=== PATIENT | female | born 1990 | race Caucasian/White ===

== ENCOUNTER 2017-05-05 05:02 | Emergency (ER) | payer OTHER ==
[2017-05-05 05:26] VITALS: BMI 49.9
--- NOTE | 2017-05-05 07:37 | PDOC ---
History of Present Illness - General Chief Complaint: Pain Stated Complaint: PAIN TO LEFT CALF Time Seen by Provider: 05/05/17 05:20 - History of Present Illness Initial Comments: 05/05/17 07:29 The patient is 26 year old female with no significant past medical history who presents to the ED complaining of left calf pain and swelling. The patient states she was walking several hours ago when she felt tightness in her left calf followed by a popping sensation. She subsequently developed left calf pain and swelling. Pain is worse with bearing weight and patient reports difficulty walking. She also reports some mild swelling in her left foot. Denies recent immobilization. No OCP use. She denies any chest pain, SOB, or diaphoresis. She denies recent antibiotic use. Past History - Past Medical History Allergies/Adverse Reactions: Allergies Allergy/AdvReac Type Severity Reaction Status Date / Time No Known Drug Allergies Allergy Verified 05/05/17 05:24 NUTS Allergy Swelling Uncoded 05/05/17 05:24 Home Medications: Ambulatory Orders No Home Medications 0 dose .ROUTE UTDICT 04/04/13 Asthma: No Cancer: No Cardiac Disorders: No COPD: No Diabetes: No HTN: No Seizures: No Thyroid Disease: No - Reproductive History (#): 1 Para: 0 Therapeutic (s) & number: No Spontaneous : 0 - Immunization History Immunization Up to Date: Yes - Suicide/Smoking/Psychosocial Hx Smoking Status: No Smoking History: Never smoked Have you smoked in the past 12 months: No Number of Cigarettes Smoked Daily: 0 Information on smoking cessation initiated: No Hx Alcohol Use: No Drug/Substance Use Hx: No Hx Substance Use Treatment: No Review of Systems - Review of Systems Comments:: 05/05/17 07:32 "GENERAL/CONSTITUTIONAL: No fever or chills. No weakness. HEAD, EYES, EARS, NOSE AND THROAT: No change in vision. No ear pain or discharge. No sore throat. CARDIOVASCULAR: No chest pain or shortness of breath. RESPIRATORY: No cough, wheezing, or hemoptysis. GASTROINTESTINAL: No nausea, vomiting, diarrhea or constipation. GENITOURINARY: No dysuria, frequency, or change in urination. MUSCULOSKELETAL: +Left calf pain and swelling. No other joint or muscle swelling or pain. No neck or back pain. SKIN: No rash NEUROLOGIC: No headache, vertigo, loss of consciousness, or change in strength/ sensation. ENDOCRINE: No increased thirst. No abnormal weight change. HEMATOLOGIC/LYMPHATIC: No anemia, easy bleeding, or history of blood clots. ALLERGIC/IMMUNOLOGIC: No hives or skin allergy. " *Physical Exam - Vital Signs Last Vital Signs Temp Pulse Resp BP Pulse Ox 98.3 F 84 18 134/67 97 05/05/17 07:28 05/05/17 07:28 05/05/17 07:28 05/05/17 07:28 05/05/17 07:28 - Physical Exam Comments: 05/05/17 07:37 "GENERAL: Awake, alert, and fully oriented, in no acute distress HEAD: No signs of trauma EYES: PERRLA, EOMI, sclera anicteric, conjunctiva clear ENT: Auricles normal inspection, hearing grossly normal, nares patent, oropharynx clear without exudates. Moist mucosa NECK: Nontender, no stepoffs, Normal ROM, supple, no lymphadenopathy, JVD, or masses LUNGS: Breath sounds equal, clear to auscultation bilaterally. No wheezes, and no crackles HEART: Regular rate and rhythm, normal S1 and S2, no murmurs, rubs or gallops ABDOMEN: Soft, nontender, normoactive bowel sounds. No guarding, no rebound. No masses EXTREMITIES: LLE with slightly diminished strength on plantarflexion of foot, NORMAL leonard test NEUROLOGICAL: Cranial nerves II through XII intact. 5/5 strength and sensation in all extremities, Normal speech, normal gait SKIN: Warm, Dry, normal turgor, no rashes or lesions noted. " ED Treatment Course - ADDITIONAL ORDERS Additional order review: Laboratory Results 05/05/17 06:07 Urine HCG, Qual Negative - RADIOLOGY Radiology Studies Ordered: Category Date Time Status ANKLE-LEFT [RAD] Stat Radiology 05/05/17 05:34 Ordered DUPLEX VASCUL US-1 LEG [US] Stat Ultrasound 05/05/17 05:33 Ordered SOFT TISSUE EXTREMITY US [US] Stat Ultrasound 05/05/17 05:33 Ordered Medical Decision Making - Medical Decision Making 05/05/17 07:38 26 F with L calf pain and swelling. Exam with slightly diminished strength on plantarflexion of foot. Possible partial achilles tear. Complete tear unlikely as pt with some preserved strength and normal leonard test. Will r/o acute fx and DVT given swelling and pain. - L ankle XR - LLE US - Ortho f/u *DC/Admit/Observation/Transfer Diagnosis at time of Disposition: Achilles rupture - Discharge Dispostion Disposition: HOME Condition at time of disposition: Stable - Referrals Referrals: Dusty Perera [Primary Care Provider] - Luisito Higuera MD [Staff Physician] - - Patient Instructions Additional Instructions: Call Dr. Higuera office tomorrow for appointment within one week with the orthopedic doctor. Return to the emergency department if you have any new, worsening or concerning symptoms. - Post Discharge Activity - Attestations Physician Attestion: 05/07/17 12:45 I, Dr. Luisito Torrez MD, attest that this document has been prepared under my direction and personally reviewed by me in its entirety. I further attest, that it accurately reflects all work, treatment, procedures and medical decision -making performed by me.
[2017-05-05 11:25] VITALS: BP 123/75; PULSE 66; TEMP 99.3
--- NOTE | 2017-05-05 12:32 | PDOC ---
*Physical Exam - Vital Signs Last Vital Signs Temp Pulse Resp BP Pulse Ox 99.3 F 66 18 123/75 98 05/05/17 11:24 05/05/17 11:24 05/05/17 11:24 05/05/17 11:24 05/05/17 11:24 ED Treatment Course - ADDITIONAL ORDERS Additional order review: Laboratory Results 05/05/17 06:07 Urine HCG, Qual Negative - RADIOLOGY Radiology Studies Ordered: Category Date Time Status LEG TIB/FIB-LEFT [RAD] Stat Radiology 05/05/17 08:13 Completed Medical Decision Making - Medical Decision Making 05/05/17 12:26 Imaging consistent with Achilles tendon rupture. Repeat exam with swelling in achillis tendon area. 2+ DP pulse palpable. Patient placed in a posterior splint in equinus position and given crutches for NWB. Patient is to follow-up with orthopedics as soon as possible in the next week. I discussed the physical exam findings, ancillary test results and final diagnoses with the patient. I answered all of the patient's questions. The patient was satisfied with the care received and felt comfortable with the discharge plan and treatment plan. The patient will call their primary care physician within 24 hours to arrange follow-up and will return to the Emergency Department with any new, persistent or worsening symptoms. *DC/Admit/Observation/Transfer Diagnosis at time of Disposition: Achilles rupture - Discharge Dispostion Disposition: HOME Condition at time of disposition: Stable Admit: No - Referrals Referrals: Dusty Perera [Primary Care Provider] - Luisito Higuera MD [Staff Physician] - - Patient Instructions Additional Instructions: Call Dr. Higuera office tomorrow for appointment within one week with the orthopedic doctor. Return to the emergency department if you have any new, worsening or concerning symptoms. - Post Discharge Activity
== END 2017-05-05 12:45 | disposition home or self-care (01) ==
LOC: JER 05:02
PROC: 2W3RX1Z Immobilization of Left Lower Leg using Splint (ICD-10-PCS; principal; 2017-05-05)
DX: S86.012A Strain of left Achilles tendon, initial encounter (principal); Y93.01 Activity, walking, marching and hiking; Y93.89 Activity, other specified; Y92.89 Other specified places as the place of occurrence of the external cause; Y99.8 Other external cause status
CPT/HCPCS: 29515; 73590-TC-LT; 73610-TC-LT; 76882; 84703; 93971-TC; 99283-25

== ENCOUNTER 2020-08-26 07:08 | Emergency (ER) | payer OTHER ==
[2020-08-26 07:52] VITALS: TEMP 98.1; BMI 47.0
[2020-08-26 08:19] LABS: BASO % 0.5 % (0-2.0); EOS % 0.3 % (0-4.5); HEMATOCRIT 39.6 % (32.4-45.2); HEMOGLOBIN 13.4 GM/dL (10.7-15.3); MCH 28.3 pg (25.7-33.7); MEAN CELL VOLUME 83.2 fl (80-96); MEAN PLT VOLUME 10.2 fl (7.5-11.1); MONO % 7.7 % (3.8-10.2); NEUT % 77.5 % (42.8-82.8); PLATELET COUNT 197 K/MM3 (134-434); RBC 4.75 M/mm3 (3.60-5.2); RDW 14.8 % (11.6-15.6); WHITE BLOOD COUNT 7.9 K/mm3 (4.0-10.0)
[2020-08-26 08:33] LABS: URINE APPEARANCE TURBID; URINE COLOR RED
[2020-08-26 08:34] LABS: EPI CELLS 78.3 /uL (0-25.1); HYALINE CASTS 1.75 /uL (0-3.1); URINE RBC 11037.9 /uL (0-23.9); URINE WBC 50.2 /uL (0-25.8)
[2020-08-26 08:55] LABS: POTASSIUM 3.9 mmol/L (3.5-5.1)
[2020-08-26 08:57] LABS: ALBUMIN 3.9 g/dl (3.4-5.0); BLOOD UREA NITROGEN 8.6 mg/dL (7-18); CALCIUM 9.2 mg/dL (8.5-10.1)
[2020-08-26 09:00] LABS: CREATININE 0.8 mg/dL (0.55-1.3)
[2020-08-26 09:02] LABS: BILIRUBIN,TOTAL 0.4 mg/dL (0.2-1); TOT PROT 7.1 g/dl (6.4-8.2)
[2020-08-26 12:15] VITALS: BP 114/58; PULSE 62
== END 2020-08-26 12:20 | disposition home or self-care (01) ==
LOC: JER 07:08
DX: O26.851 Spotting complicating pregnancy, first trimester (principal); Z3A.08 8 weeks gestation of pregnancy
CPT/HCPCS: 36415; 76817-TC; 80053; 81003; 84702; 85025; 86850; 86900; 86901; 87086; 87186; 87491; 87591; 99284-25

== ENCOUNTER 2020-08-28 08:32 | Emergency (ER) | payer OTHER ==
[2020-08-28 08:38] VITALS: BP 109/49; PULSE 56; TEMP 98; BMI 47.0
== END 2020-08-28 10:50 | disposition home or self-care (01) ==
LOC: JER 08:32
DX: O26.851 Spotting complicating pregnancy, first trimester (principal); Z3A.01 Less than 8 weeks gestation of pregnancy
CPT/HCPCS: 36415; 76817-TC; 84702; 99284-25

== ENCOUNTER 2020-09-21 10:09 | Emergency (ER) | payer OTHER ==
[2020-09-21 10:36] VITALS: BMI 46.3
[2020-09-21 11:08] LABS: BASO % 0.5 % (0-2.0); EOS % 0.5 % (0-4.5); HEMATOCRIT 37.6 % (32.4-45.2); LYMPH % 16.9 % (8-40); MCH 28.4 pg (25.7-33.7); MCHC 34.7 g/dl (32.0-36.0); MEAN CELL VOLUME 81.8 fl (80-96); MEAN PLT VOLUME 9.5 fl (7.5-11.1); MONO % 5.6 % (3.8-10.2); NEUT % 76.5 % (42.8-82.8); PLATELET COUNT 227 K/MM3 (134-434)
[2020-09-21 11:28] LABS: ALBUMIN 3.3 g/dl (3.4-5.0); CALCIUM 9.1 mg/dL (8.5-10.1)
[2020-09-21 11:29] LABS: BLOOD UREA NITROGEN 8.6 mg/dL (7-18)
[2020-09-21 11:32] LABS: CREATININE 0.7 mg/dL (0.55-1.3)
[2020-09-21 11:33] LABS: BILIRUBIN,TOTAL 0.4 mg/dL (0.2-1); TOT PROT 6.8 g/dl (6.4-8.2)
[2020-09-21 14:17] LABS: EPI CELLS 33 /uL (0-25.1); HYALINE CASTS 1 /uL (0-3.1); PH,URINE 6.5 (5.0-8.0); URINE APPEARANCE CLOUDY; URINE BACTERIA 1927 /uL (0-1359); URINE BILIRUBIN NEGATIVE (NEGATIVE); URINE COLOR YELLOW; URINE GLUCOSE (UA) NEGATIVE (NEGATIVE); URINE KETONE NEGATIVE (NEGATIVE); URINE LEUK ESTERASE 1+ (NEGATIVE); URINE NITRITE NEGATIVE (NEGATIVE); URINE PROTEIN NEGATIVE (NEGATIVE); URINE RBC 17 /uL (0-23.9); URINE UROBILINOGEN 0.2 mg/dL (0.2-1.0); URINE WBC 112 /uL (0-25.8)
[2020-09-21 15:35] VITALS: BP 118/72; PULSE 75; TEMP 98.2
== END 2020-09-21 15:30 | disposition home or self-care (01) ==
LOC: JER 10:09
DX: O26.851 Spotting complicating pregnancy, first trimester (principal)
CPT/HCPCS: 36415; 76801-TC; 80053; 81003; 84702; 85025; 87086; 99285-25

== ENCOUNTER 2022-12-18 10:10 | Emergency (ER) | payer OTHER ==
[2022-12-18 10:25] VITALS: BP 114/61; PULSE 88; RESP 20; TEMP 98.7; BMI 49.2
[2022-12-18] MEDS ORDERED: FLUCONAZOLE 50 MG TABLET PO ONE (11:57)
[2022-12-18] MEDS ORDERED: KETOROLAC TROMETHAMINE 30 MG/1 ML VIAL IM ONE (11:57)
[2022-12-18] MEDS ORDERED: LIDOCAINE 5% TOPICAL PATCH TP ONE (11:57)
[2022-12-18] MEDS ORDERED: LIDOCAINE 5% TOPICAL PATCH ONE (12:04)
[2022-12-18] MEDS ORDERED: FLUCONAZOLE 150 MG TABLET PO ONE (12:04)
== END 2022-12-18 13:05 | disposition home or self-care (01) ==
LOC: JERFT 10:10
PROC: 3E0233Z Introduction of Anti-inflammatory into Muscle, Percutaneous Approach (ICD-10-PCS; principal; 2022-12-18)
DX: N39.0 Urinary tract infection, site not specified (principal); N76.89 Other specified inflammation of vagina and vulva; B37.31 Acute candidiasis of vulva and vagina; M79.605 Pain in left leg
CPT/HCPCS: 99284-25

== ENCOUNTER 2023-01-10 11:03 | Emergency (ER) | payer OTHER ==
[2023-01-10 11:26] VITALS: BP 132/86; PULSE 83; RESP 18; TEMP 98; BMI 49.2
[2023-01-10] MEDS ORDERED: morphine CARPU-JECT 4 MG/1 ML DISP.SYRIN IVPUSH ONE (12:28)
[2023-01-10] MEDS ORDERED: diazePAM 2 MG TABLET PO ONE (12:28)
[2023-01-10] MEDS ORDERED: ACETAMINOPHEN 1000 MG/100 ML BAG IVPB ONE (12:29)
[2023-01-10] MEDS ORDERED: morphine SULFATE 4 MG/ML VIAL ONE (13:16)
[2023-01-10] MEDS ORDERED: ACETAMINOPHEN INJECTION 100 ML IVPB ONE (13:16)
[2023-01-10] MEDS ORDERED: diazePAM 2 MG TABLET ONE (13:16)
[2023-01-10 13:17] LABS: BASO % 0.7 % (0-2.0); HEMATOCRIT 42.9 % (32.4-45.2); HEMOGLOBIN 13.4 GM/dL (10.7-15.3); LYMPH % 18.5 % (8-40); MCH 26.3 pg (25.7-33.7); MCHC 31.4 g/dl (32.0-36.0); MEAN CELL VOLUME 83.9 fl (80-96); MEAN PLT VOLUME 10.4 fl (7.5-11.1); NEUT % 70.8 % (42.8-82.8); PLATELET COUNT 225 10^3/uL (134-434); RBC 5.11 M/mm3 (3.60-5.2); RDW 15.5 % (11.6-15.6); WHITE BLOOD COUNT 7.1 K/mm3 (4.0-10.0)
[2023-01-10 13:49] LABS: POTASSIUM 4.4 mmol/L (3.5-5.1)
[2023-01-10 13:51] LABS: ALBUMIN 3.8 g/dl (3.4-5.0); BLOOD UREA NITROGEN 12.6 mg/dL (7-18); CALCIUM 9.3 mg/dL (8.5-10.1)
[2023-01-10 13:54] LABS: CREATININE 0.9 mg/dL (0.55-1.3)
[2023-01-10 13:56] LABS: BILIRUBIN,TOTAL 0.3 mg/dL (0.2-1)
[2023-01-10 13:57] LABS: TOT PROT 7.1 g/dl (6.4-8.2)
[2023-01-10] MEDS ORDERED: NAPROXEN 500 MG TABLET PO ONE (14:32)
[2023-01-10] MEDS ORDERED: NAPROXEN 500 MG TABLET ONE (14:44)
== END 2023-01-10 17:20 | disposition home or self-care (01) ==
LOC: JER 11:03
PROC: 3E033NZ Introduction of Analgesics, Hypnotics, Sedatives into Peripheral Vein, Percutaneous Approach (ICD-10-PCS; principal; 2023-01-10)
PROC: 3E033GC Introduction of Other Therapeutic Substance into Peripheral Vein, Percutaneous Approach (ICD-10-PCS; 2023-01-10)
DX: M54.42 Lumbago with sciatica, left side (principal); M48.061 Spinal stenosis, lumbar region without neurogenic claudication; R20.2 Paresthesia of skin; M25.552 Pain in left hip; M79.605 Pain in left leg; G89.29 Other chronic pain; R26.0 Ataxic gait
CPT/HCPCS: 36415; 80053; 85025; 99284-25

== ENCOUNTER 2023-01-22 05:22 | Day surgery (SDC) | payer OTHER ==
[2023-01-21 09:17] VITALS: BMI 46.8
[~2023-01-22 05:22] MED LIST: ACETAMINOPHEN 500 MG TABLET (FP) PO PRN
[2023-01-22] MEDS ORDERED: ACETAMINOPHEN 500 MG TABLET (FP) PO PRN (08:48)
[2023-01-22 15:20] VITALS: RESP 20
[2023-01-22] MEDS ORDERED: LIDOCAINE HCL 1% PRESERVATIVE FREE - 30ML VIAL IJ ONE (16:27)
[2023-01-22] MEDS ORDERED: IOHEXOL 180 MG/1 ML ML IJ ONE (16:30)
[2023-01-22] MEDS ORDERED: DEXAMETHASONE SOD PHOSPHATE 10 MG/1 ML VIAL IVPUSH ONE (16:30)
[2023-01-22 16:59] VITALS: BP 118/64; PULSE 70; TEMP 97.2
== END 2023-01-22 16:56 | disposition home or self-care (01) ==
LOC: JASU-SURG 05:22
PROVIDERS: ATTEND Pain Medicine Pain Medicine
PROC: 3E0R3BZ Introduction of Anesthetic Agent into Spinal Canal, Percutaneous Approach (ICD-10-PCS; 2023-01-22)
PROC: 3E0R33Z Introduction of Anti-inflammatory into Spinal Canal, Percutaneous Approach (ICD-10-PCS; principal; 2023-01-22 17:00)
DX: M48.061 Spinal stenosis, lumbar region without neurogenic claudication (principal); M54.16 Radiculopathy, lumbar region
CPT/HCPCS: 76000-TC-FY; 81025; J1100

== ENCOUNTER 2024-04-15 09:04 | Emergency (ER) | payer OTHER ==
[2024-04-15 09:11] VITALS: BP 139/69; PULSE 79; RESP 20; TEMP 98.3; BMI 47.2
== END 2024-04-15 11:49 | disposition home or self-care (01) ==
LOC: JER 09:04
DX: F41.9 Anxiety disorder, unspecified (principal); F32.9 Major depressive disorder, single episode, unspecified
CPT/HCPCS: 93005; 93010; 99283-25